=== PATIENT | male | born 1965 | race Two or more races ===

== ENCOUNTER 2020-06-04 23:45 | Emergency (ER) | payer SELFPAY ==
[~2020-06-04] VITALS: Ht 180.3 cm; Wt 89.9 kg
[2020-06-05] MEDS ORDERED: SODIUM CHLORIDE FLUSH 10ML SYR IVF ONE (01:00)
[2020-06-05] MEDS ORDERED: SODIUM CHLORIDE 0.9% 1,000ML IVBOLUS ONE (01:00)
[2020-06-05 01:39] LABS: PH, VENOUS 7.382 pH (7.320-7.420)
[2020-06-05 01:41] LABS: BASOPHILS # (AUTO) 0.04 x10^3/uL (0-0.1); BASOPHILS % (AUTO) 1 % (0-1); EOSINOPHILS # (AUTO) 0.09 x10^3/uL (0-0.4); EOSINOPHILS % (AUTO) 1 % (1-7); LYMPHOCYTES # (AUTO) 2.34 x10^3/uL (1-3.4); LYMPHOCYTES % (AUTO) 36 % (22-44); MD NO; MEAN CORPUSCULAR HGB CONC 33.6 g/dL (33.2-36.2); MEAN CORPUSCULAR VOLUME 92.5 fL (81-97); MEAN PLATELET VOLUME 9.7 fL (7.4-10.4); MONOCYTES # (AUTO) 0.47 x10^3/uL (0.2-0.8); MONOCYTES % (AUTO) 7 % (2-9); NEUTROPHILS # (AUTO) 3.51 x10^3/uL (1.8-6.8); NEUTROPHILS % (AUTO) 54 % (42-75); PLATELET COUNT 371 x10^3/uL (130-400); RED BLOOD COUNT 5.07 x10^6/uL (4.38-5.82); RED CELL DISTRIBUTION WIDTH 13.2 % (9.4-14.8)
[2020-06-05 01:52] LABS: MICROSCOPIC NOT IND
--- NOTE | 2020-06-05 02:15 | NUR ---
Break RN: lab at bedside for re-draw.
[2020-06-05 02:28] LABS: ALANINE AMINOTRANSFERASE 52 U/L (12-78); ALBUMIN 3.4 g/dL (3.4-5.0); ANION GAP 9 mmol/L (5-15); CALCIUM 9.2 mg/dL (8.5-10.1); CHLORIDE 104 mmol/L (98-107); CREATININE 0.88 mg/dL (0.7-1.3)
[2020-06-05 02:30] LABS: ALKALINE PHOSPHATASE 176 U/L (45-117); BILIRUBIN,TOTAL 0.3 mg/dL (0.2-1.0); TOTAL PROTEIN 7.8 g/dL (6.4-8.2)
[2020-06-05 02:40] LABS: ACETONE, SERUM Trace (Negative)
[2020-06-05] MEDS ORDERED: INSULIN SINGLE DOSE, ER ONE (02:51)
[2020-06-05] MEDS ORDERED: INSULIN REGULAR 100 UNITS/ML, 3ML VIAL IVPush ONE (03:00)
--- NOTE | 2020-06-05 03:44 | NUR ---
PT SITTING IN BED, PT A/OX4 WITH NO COMPLAINTS. MUSEUM EDUCATOR WILL CONTINUE TO MONITOR
[2020-06-05 04:26] VITALS: BP 132/78
== END 2020-06-05 04:28 | disposition home or self-care (01) ==
LOC: ED 06-05 00:15
DX: E11.65 Type 2 diabetes mellitus with hyperglycemia (principal); B37.42 Candidal balanitis; R30.0 Dysuria
CPT/HCPCS: 80053; 81003; 82010; 82803; 82962; 83036; 85025; 96361; 96374; 99283; J1815; J7030